=== PATIENT | female | born 1965 | race Caucasian/White ===

== ENCOUNTER 2021-05-27 09:45 | Day surgery (SDC) | payer MEDICAID, SELFPAY ==
[~2021-05-27] VITALS: Ht 157.5 cm; Wt 72.6 kg
[2021-05-27] MEDS ORDERED: ACETAMINOPHEN I.V. 1000 MG 100 ML IV ONE (12:18)
[2021-05-27] MEDS ORDERED: PHENYLEPHRINE HCL 10 MG/ML VIAL (NEOSYNEPHRINE) IV ONE (12:32)
[2021-05-27] MEDS ORDERED: ePHEDrine sulfate 50 MG/ML VIAL IVP ONE (12:32)
[2021-05-27] MEDS ORDERED: LIDOCAINE PF 2%, 200 MG/10 ML AMPUL.LUER (EPIDURAL) INJ ONE (12:32)
[2021-05-27] MEDS ORDERED: GLYCOPYRROLATE 0.2 MG/ML VIAL IJ ONE (12:32)
[2021-05-27] MEDS ORDERED: OXYMETAZOLINE HCL 0.05% NASAL SPRAY NS ONE (12:32)
[2021-05-27] MEDS ORDERED: ONDANSETRON HCL 4 MG/2 ML VIAL IVP ONE (12:32)
[2021-05-27] MEDS ORDERED: NS 100 ML BAG IV ONE (12:32)
[2021-05-27] MEDS ORDERED: MUPIROCIN 2% TOPICAL OINTMENT 22 GM TP ONE (12:32)
[2021-05-27] MEDS ORDERED: DEXAMETHASONE SOD PHOSPHATE 4 MG/ML VIAL IVP ONE (12:32)
[2021-05-27] MEDS ORDERED: ROCURONIUM BROMIDE 10 MG/ML (ZEMURON) IV ONE (12:32)
[2021-05-27] MEDS ORDERED: fentaNYL CITRATE 250 MCG/5 ML AMP IV ONE (12:32)
[2021-05-27] MEDS ORDERED: MIDAZOLAM HCL 5 MG/5 ML VIAL IVP ONE (12:32)
[2021-05-27] MEDS ORDERED: PROPOFOL 200MG/ 20ML VIAL (DIPRIVAN) IV ONE (12:32)
[2021-05-27] MEDS ORDERED: WATER FOR IRRIGATION,STERILE 1,000 ML IRRIG.SOLN IR ONE (12:32)
[2021-05-27] MEDS ORDERED: DESFLURANE 15 MIN GAS INH ONE (12:32)
[2021-05-27] MEDS ORDERED: NS IRRIG SOLN 1000 ML IR ONE (12:32)
[2021-05-27] MEDS ORDERED: LR 1,000 ML IV.SOLN IV ONE (12:32)
[2021-05-27] MEDS ORDERED: LIDOCAINE/EPI MPF 1%1:200000 30 ML VIAL INJ ONE (12:32)
[2021-05-27] MEDS ORDERED: MIDAZOLAM HCL 2 MG/2 ML VIAL (VERSED) IVP PRN (13:15)
[2021-05-27] MEDS ORDERED: LR 1,000 ML IV SCH (13:15)
[2021-05-27] MEDS ORDERED: MEPERIDINE HCL/PF 25 MG/ML DISP.SYRIN IVP PRN (13:15)
[2021-05-27] MEDS ORDERED: HYDROmorphone 1 MG/ML INJ. CARTRIDGE IVP PRN ×2 (13:15)
[2021-05-27] MEDS ORDERED: hydrALAZINE HCL 20 MG/ML VIAL IVP PRN (13:15)
[2021-05-27] MEDS ORDERED: LABETALOL 100 MG/ 20ML VIAL IVP PRN (13:15)
[2021-05-27] MEDS ORDERED: METOCLOPRAMIDE HCL 10 MG/2 ML VIAL IVP PRN (13:15)
[2021-05-27] MEDS ORDERED: hydrALAZINE HCL 20 MG/ML VIAL ONE (14:58)
[2021-05-27 17:00] VITALS: BP_SYST 149
== END 2021-05-27 18:00 | disposition home or self-care (01) ==
LOC: SDS 09:45 → SMU 09:46 → SDS 18:00
PROVIDERS: ATTEND Otolaryngology
DX: J34.89 Other specified disorders of nose and nasal sinuses (principal); J34.2 Deviated nasal septum; I10 Essential (primary) hypertension; K21.9 Gastro-esophageal reflux disease without esophagitis; D38.5 Neoplasm of uncertain behavior of other respiratory organs; J30.1 Allergic rhinitis due to pollen; H68.101 Unspecified obstruction of Eustachian tube, right ear; H92.03 Otalgia, bilateral; J45.20 Mild intermittent asthma, uncomplicated; Z87.891 Personal history of nicotine dependence; Z79.899 Other long term (current) drug therapy
CPT/HCPCS: 30140; 30520; 31240; 31255; 31256; 31298; 36415; 87426; J0131; 88304; 88305; 88311; C1726; J0360; J1100; J2001; J2250; J2370; J2405; J2704; J3010; J3490; J7120